=== PATIENT | male | born 1980 | race Caucasian/White ===

== ENCOUNTER 2019-10-25 12:12 | Outpatient (CLI) | payer BC ==
--- NOTE | 2019-10-25 13:06 | ULT ---
EXAM: Bilateral lower extremity venous Doppler US HISTORY: bilateral lower extremity pain FINDINGS: Grayscale, color-flow, Doppler evaluation, spectral analysis of the bilateral lower extremities venou s structures is performed with 2-D imaging. The bilateral common femoral, superficial femoral, popliteal, posterior tibial, proximal greater saphenous and profunda femoral veins are imaged. There is normal luminal compressibility, flow, and augmentation in the visualized deep venous structu res of the bilateral lower extremities. IMPRESSION: No evidence of a deep vein thrombosis in either lower extremity.
--- NOTE | 2019-10-25 13:59 | ULT ---
Doppler arterial evaluation of both lower extremities INDICATION: History of calf pain FINDINGS: There is normal triphasic waveforms from the common femoral arteries to the level of the fo releg vasculature. No hemodynamically significant stenosis seen. IMPRESSION: Normal Doppler arterial evaluation of both lower extremities. No hemodynamically signific ant stenosis demonstrated.
== END 2019-10-25 12:13 | disposition home or self-care (01) ==
LOC: ULT 12:12
PROVIDERS: ATTEND Family Medicine
DX: M79.661 Pain in right lower leg (principal); M79.662 Pain in left lower leg
CPT/HCPCS: 93923; 93970

== ENCOUNTER 2019-11-30 11:33 | Emergency (ER) | payer BC | END 2019-11-30 12:56 | disposition home or self-care (01) | LOC: ERS 11:33 | DX: M54.42 Lumbago with sciatica, left side (principal) | CPT/HCPCS: 99283 ==

== ENCOUNTER 2019-12-16 07:31 | Outpatient (CLI) | payer BC ==
--- NOTE | 2019-12-16 10:27 | MRI ---
MRI LUMBAR SPINE WITH AND WITHOUT CONTRAST: Date: 12/16/2019 INDICATION: Lumbar radiculopathy. FINDINGS: Lumbar vertebra maintain normal height and alignment. Disc spaces are preserved. Vertebral body signa l appears normally maintained. L1-2: No disc bulge or protrusion. No central canal or foraminal stenosis. L2-3: No evidence of significant disc bulge or protrusion centrally. There is asymmetric bulge to th e right which extends into the right foramina and may contact exiting right L2 nerve root. No central canal stenosis. L3-4: No significant disc bulge centrally. There is an annular fissure with small focal protrusion t o the right which does extend into the right foramina and contacts the exiting right L3 nerve root. N o central canal stenosis. L4-5: No significant disc bulge centrally. There is annular fissure with small protrusion/asymmetric bulge to the left which extends into the left foramina and does contact and appears to displace the exiting left L4 nerve root. L5-S1: No significant disc bulge or protrusion. No central canal or foraminal stenosis. IMPRESSION: 1. Asymmetric disc bulge/protrusion with disc osteophyte complex projecting to the left at L4-5 appe ars to displace the exiting left L4 nerve root. 2. Annular fissure with small focal protrusion to the right at L3-4 extending into the foramina as d escribed. 3. Mild asymmetric bulge to the right at L2-3 extending into the foramina as described. POS: [facility]
[2019-12-16] MEDS ORDERED: Magnevist 469MG/ML 20 ML VIAL ONE (14:43)
== END 2019-12-16 07:32 | disposition home or self-care (01) ==
LOC: BICMRI 07:31
PROVIDERS: ATTEND Family Medicine
DX: M51.16 Intervertebral disc disorders with radiculopathy, lumbar region (principal); M79.661 Pain in right lower leg; M79.662 Pain in left lower leg; M25.78 Osteophyte, vertebrae
CPT/HCPCS: 72158; 82565; A9579

== ENCOUNTER 2023-11-25 10:45 | Outpatient (CLI) | payer BC | END 2023-11-25 10:46 | disposition home or self-care (01) | LOC: BICRAD 10:45 | PROVIDERS: ATTEND Family Medicine | DX: M54.2 Cervicalgia (principal); M54.6 Pain in thoracic spine; M77.8 Other enthesopathies, not elsewhere classified | CPT/HCPCS: 72040; 72072 ==